=== PATIENT | male | born 1995 | race Caucasian/White ===

== ENCOUNTER 2021-04-09 13:51 | Outpatient (REF) | payer SELFPAY ==
[2021-04-09 15:53] LABS: Binax Internal Control QC Valid; Binax Now Covid-19 Ag Positive (Negative)
== END 2021-04-09 13:52 | disposition home or self-care (01) ==
LOC: HO.LAB 13:51
PROVIDERS: Visit Provider Internal Medicine
DX: Z20.822 Contact with and (suspected) exposure to COVID-19 (principal)
CPT/HCPCS: 36415; C9803